=== PATIENT | male | born 1965 | race Caucasian/White ===

== ENCOUNTER 2023-08-14 07:18 | Observation (INO) ==
--- NOTE | 2023-07-17 08:53 | PAT Medication Instructions ---
Medication Instructions Date of Service July 17, 2023 Home Medications Medication Instructions Recorded aspirin 81 mg tablet,delayed 81 mg PO BID #60 tabs 01/12/21 release oxycodone-acetaminophen 5 mg-325 1 - 2 tab PO Q6H PRN pain #24 tabs 01/12/21 mg tablet (Percocet) amlodipine 10 mg tablet 5 mg PO QAM benazepril 40 mg tablet 40 mg PO QAM terazosin 5 mg capsule 5 mg PO DAILY aspirin 81 mg tablet,delayed release 81 mg PO BID oxycodone-acetaminophen 5 mg-325 mg tablet (Percocet) 1 - 2 tab PO Q6H PRN pain ASK your prescriber and surgeon aspirin 81 mg tablet,delayed release 81 mg PO BID DO NOT take the morning of surgery benazepril 40 mg tablet 40 mg PO QAM Take morning of surgery With a small sip of water, OTHERWISE NOTHING TO EAT OR DRINK AFTER MIDNIGHT: amlodipine 10 mg tablet 5 mg PO QAM terazosin 5 mg capsule 5 mg PO DAILY oxycodone-acetaminophen 5 mg-325 mg tablet (Percocet) 1 - 2 tab PO Q6H PRN pain (if needed) Take evening before surgery oxycodone-acetaminophen 5 mg-325 mg tablet (Percocet) 1 - 2 tab PO Q6H PRN pain (if needed) Other Notes If you have any questions please call us at [phone] or [phone] or [phone] or [phone]
--- NOTE | 2023-07-19 14:48 | Anesthesiology Consultation ---
Date of Service July 19, 2023 Assessment & Plan (1) Encounter for pre-operative examination: - Infectious disease screening: Per assessment on 07/19/23: No known infectious disease contacts or current infectious disease symptoms. No noted Covid positive test result in past 90 days. - Anesthesia reaction: Severe headache after lithotripsy (pt states done remotely years ago with [facility]) Chart Review Chart Review: Acceptable Risk for Surgery and Patient seen in Pre Admission Testing Teaching & Discussion Pre-Anesthesia Teaching/Discussion Notes: Instructed NPO after midnight before surgery,except medications with 15 cc of water. Medication instructions provided according to the PAT guidelines. History Surgery Operation Date: 08/14/23 07:00 Proposed Procedures p Bilateral Total Knee Arthroplasty - Ming Garces MD Height/Weight Height: 5 ft 7 in Weight: 72.4 kg Allergies Allergy/AdvReac Type Severity Reaction Status Date / Time bee venom protein (honey bee) Allergy Intermediate edema Verified 07/17/23 07:42 No Known Drug Allergies Allergy Verified 07/17/23 07:42 Medications Home Medications Medication Instructions Recorded Confirmed Last Taken amlodipine 10 mg tablet 5 mg PO QAM 05/05/20 07/17/23 01/11/21 06:00 benazepril 40 mg tablet 40 mg PO QAM 05/05/20 07/17/23 01/12/21 06:00 Past Medical History Medical History Degenerative arthritis of knee, bilateral Kidney stone No current issues Hypertension DVT (deep venous thrombosis) Left calf (approximately 2012), post-op left knee bursectomy Exercise / Class Metabolic Activity II 4-5 Yardwork/Stairs/Walk up hill (one FS (no CP, no SOB)) Past Family History Family History Other Coronary heart disease No family history of adverse response to anesthesia Past Surgical History Surgical History Hx of vasectomy Hx of right knee surgery Right Knee Arthroscopy, Partial Medial Menisectomy, Chondroplasty; microfracture right medial femoral condyle and medial tibial plateau [place] teeth extracted History of colonoscopy History of lithotripsy History of surgery spermatocelectomy H/O umbilical hernia repair H/O left knee surgery bursa removal Past Anesthesia History No Family Hx of Anesthesia Complications and Other (Severe headache after lithotripsy (pt states done remotely years ago with [facility])) History of PONV No Hx of PONV and No Hx of Motion Sickness Social History Smoking Status: Never smoker tobacco type: smokeless tobacco Do You Dip or Chew Tobacco: Yes (Daily- Advised none DOS) Hx Alcohol Use: Yes Alcohol type: beer alcohol intake frequency: 0-2 drinks per day Hx Substance Use: No substance use type: does not use Review of Systems Patient denies chest pain, shortness of breath, dyspnea on exertion, fever, chills, cough, wheezing, palpitations. Physical Exam Vital Signs VITALS BP 118/77 P 71 TEMP 97.9 SP02 95%RA RESP 16 PHYSICAL Full cervical extension range of motion. Full TMJ range of motion. TMD 3 finger breaths Mallampati Score 1 Dentition: intact, upper front left veneer Lungs: clear throughout to auscultation Cardiac: regular rate and rhythm, no murmurs noted Spine: normal Carotid arteries: negative bruit Extremities: no LE edema Lab Results Anesthesia Preop Results Results Anesthesia Widget: WBC 6.03 K/ul (4.8-10.8) 07/19/23 Hgb 15.0 g/dl (14.0-18.0) 07/19/23 Hct 42.1 % (42.0-52.0) 07/19/23 Plt 175 K/uL (130-400) 07/19/23 Na 141 mmol/L (136-145) 07/19/23 K 3.7 mmol/L (3.5-5.1) 07/19/23 Cl 108 mmol/L (98-107) H 07/19/23 CO2 27 mmol/L (21-32) 07/19/23 BUN 17 mg/dl (6-23) 07/19/23 Creat 0.83 mg/dl (0.6-1.4) 07/19/23 Glucose Level 82 mg/dl (70-99(Fasting)) 07/19/23 PT 10.5 Seconds (9.0-12.0) 07/19/23 PTT 26 Seconds (21-31) 07/19/23 INR 1.0 (0.9-1.1) 07/19/23 Blood Type A Negative 07/19/23 Antibody Screen NEGATIVE 07/19/23 Testing Electrocardiogram Date: 07/19/23 NSR at 70bpm. "Normal ECG" Chest X-Ray Date: 07/20/23 FINDINGS: Lung volumes are normal. Lungs are clear. There is no pneumothorax or pleural effusion. Cardiac size is normal. Mediastinal contours are normal. There is no evidence for pulmonary edema. IMPRESSION: No acute cardiopulmonary findings.
[~2023-08-14 07:18] MED LIST: ACETAMINOPHEN 500 MG TAB PO SCH; BUPIVACAINE 0.25% PF 30 ML VIAL ONE; BUPIVACAINE 0.5 % 5 MG/1 ML PF 10ML VIAL ONE; BUPIVACAINE LIPOSOME/PF 266 MG, BUPIVACAINE/EPINEPHRINE 50 ML, SODIUM CHLORIDE 0.9% PF ... INFIL SCH; CeleBREX 200 MG CAP PO SCH; FAMOTIDINE 20 MG TAB PO SCH; LR 500ML BOLUS, THEN 15ML/HR IV SCH; LR 60ML/HR IV SCH; METOCLOPRAMIDE HCL 10 MG TABLET PO SCH; Scopolamine 1 MG TDSY TD SCH; TRANEXAMIC ACID 1,000 MG **IV Intra-op IV SCH; ceFAZolin 2000MG 2,000 MG/15 ML SYR IV SCH; dexAMETHasone**PF** 10 MG/ML VIAL IV SCH
[2023-08-14] MEDS ORDERED: MIDAZOLAM HCL 1 MG/ML 2ML VIAL ONE (08:03)
[2023-08-14] MEDS ORDERED: fentaNYL citrate PF 100 MCG/2 ML VIAL ONE (08:03)
[2023-08-14] MEDS ORDERED: ONDANSETRON INJ 2 MG/ML 2 ML VIAL IV PRN ×2 (08:24→13:06)
[2023-08-14] MEDS ORDERED: fentaNYL citrate PF 100 MCG/2 ML VIAL IV PRN (08:24)
[2023-08-14] MEDS ORDERED: ePHEDrine sulfate 50 MG/ML AMP IV PRN (08:24)
[2023-08-14] MEDS ORDERED: ATROPINE SULFATE 0.1 MG/ML 10ML SYR IV PRN (08:24)
[2023-08-14] MEDS ORDERED: BUPIVACAINE/EPINEPHRINE 0.25% 1:200,000 30 ML VIAL ONE (08:45)
--- NOTE | 2023-08-14 08:45 | History & Physical Bridge Note ---
Date of Service August 14, 2023 History & Physical Bridge Note I have examined the patient, reviewed the History & Physical and in the interval since the performance of the History & Physical I have noted the following changes of clinical significance: no changes noted
[2023-08-14] MEDS ORDERED: BUPIVACAINE LIPOSOME 1.3% 266 MG/20 ML VIAL ONE (08:46)
[2023-08-14] MEDS ORDERED: SODIUM CHLORIDE 0.9% PF 50 ML VIAL ONE (08:46)
[2023-08-14] MEDS ORDERED: PROPOFOL IV EMULSION 10 MG/ML 20 ML VIAL IV ONE (10:56)
[2023-08-14] MEDS ORDERED: GLYCOPYRROLATE 0.2 MG/ML VIAL ONE (10:56)
[2023-08-14] MEDS ORDERED: DEXAMETHASONE SOD INJ 4 MG/ML VIAL ONE (10:56)
[2023-08-14] MEDS ORDERED: ONDANSETRON INJ 2 MG/ML 2 ML VIAL ONE (10:56)
--- NOTE | 2023-08-14 12:14 | Operative Report ---
PG Post Operative Report Pre & Post Diagnosis Operation Date: 08/14/23 08:50 Pre-Op Diagnosis: Bilateral Knee Degenerative Joint Disease Post-Op Diagnosis: Bilateral Knee Degenerative Joint Disease I identified the patient and participated in the time-out.: Yes Procedure Operation Date: 08/14/23 08:50 Actual Procedures p Bilateral Total Knee Arthroplasty, Cemented(Bilateral) - Ming Garces MD Surgeon Ming Garces MD Complaints Coordinator Dez Arana PA-C Estimated Blood Loss 100 Findings Consistent with Post-Op Diagnosis Operative findings were advanced bilateral knee DJD. Findings the left knee reveals mostly medial compartment disease with complete loss of cartilage space. Extensive body grade 4 changes of the trochlea as well as the lateral femoral condyle. Right knee had more extensive grade 4 [id number] disease of the medial compartment. He also had more extensive X body changes of the trochlea, patella, and lateral femoral condyle with a grade 4 disease. Specimens None Anesthesia Type Spinal MAC Complications none Disposition Accompanied Patient To Recovery: No Indications Patient is a 58-year-old active gentleman who had ASL year history of increasing bilateral knee pain discomfort describes gotten worse over time. Did have a right knee scope, partial meniscectomy and microfracture of medial femoral condyle done 2 and half years ago in the right knee. He did okay for the first year or so but Progressive pain discomfort deformity in both knees. He failed conservative measures. X-rays showed advanced medial compartment arthritis of both knees. He elected proceed with surgical treatment/knee replacement. Description of Procedure Left-sided knee implants consisted of: 1. Biomet Vanguard size 70 left posterior stabilized femoral component. 2. Biomet 75 tibial tray. 3. 12 mm pro stabilized polyethylene insert. 4. 31 x 8 all poly patella. Right side implants consist of: 1 Biomet Vanguard size 67.5 right posterior stabilized femoral component. 2. Biomet size 75 tibial tray. 3. 14 mm pro stabilized polyethylene insert. 4. 31 x 8 all poly patella. The patient was taken the operating, identified, placed on the operating table in the supine position but all contractors were properly padded. IV antibiotics tried by anesthesia team. A spinal anesthetic and been implemented holding area. The bilateral thigh tourniquets were then placed. The both legs were then prepped and draped in usual sterile fashion. Attention was drawn to the left leg. Left leg was elevated exsanguinated with use of an Esmarch and tourniquet placed at 300 mmHg. An anterior approach left knee was then formed to longitudinal incision centered over the patella. Sharp dissection was carried through subcutaneous tissue down the extensor mechanism. A medial parapatellar arthrotomy incision was made. Of note to the patient had a fairly well-defined bursa which we tried to the scuffed up a bit to a limited fluid accumulation but did not feel like it excised this as it was a very thin soft tissue envelope and was concerned about the vascularity and healing. A medial prepped arthrotomy incision was made. Some subperiosteal dissection Medially for the fat pad resected from Neath patella tendon. Patellofemoral ligament was released. Patella subluxated laterally and the knee was flexed with the osteophytes taken on distal femur. ACL PCL were then released from distal femur the tibia subluxated anteriorly. The external tibial alignment jig was then placed in the interface the tibia and adjusted 14 mm medially. Proximal tibial cut was made removed by millimeter or 2 of bone from the most deficient aspect medial tibial plateau. Some osteophytes taken off medially. The tibia sized to a size 75. Attention drawn the femur. The distal femur was entered with a sharp drill. The intramedullary canal was suction. A left 6 degree valgus cutting guide was placed. Distal femoral cutting block was pinned in place. Distal femoral cut was made to take an additional 3 mm of bone off distal femur. The femur was then sized to a size 70. The AP cutting block was pinned parallel to the epicondylar axis which was 4 degrees of external rotation. The anterior cut, anterior chamfer, posterior cut, posterior chamfer cuts were made. The box cutting guide was placed in just slight lateral box cut was made. The knee was flexed with the remnants of the medial lateral menisci were excised. The osteophytes taken off the posterior aspect the femur. Trial femoral component was placed and the tibial tray was p inned Melissa external rotation and the drill and stem punch used to create defect in proximal tibia for the tibial component. The knee was then trialed and the 12 mm insert fit most appropriately. Attention drawn the patella. The patella was cleaned of all soft tissues. Patella thickness measured 24 mm in thickness was cut down to 15. It was sized to a size 31 patella. The lug holes were drilled for 31 patella. Lateral x-rays removed. Patella button was placed. Knee was taken through range of motion patella tracked nicely with no thumbs test. Attention drawn to placing the permanent components. Follow troponin was removed. Bone plug was placed in the distal femur limit blood loss. Batch Palacos G cement was mixed. Biomet Vanguard size 70 left posterior by femoral component, size 75 tibial tray, a 12 mm pro stabilized polyethylene insert, and a 31 x 8 all poly patella were then cemented in place. Knee was brought out in full extension till cement hardened. Final cement check was then performed. Pericapsular tissues were injected with 50 cc of combination of 20 cc of Exparel, 15 cc of normal saline and 25 cc of quarter percent Marcaine with epinephrine. The tourniquet was then let down for tourniquet 55 minutes. Hemostasis assured with electrocautery. The wound was once again irrigated. The extensor Meclomen closed with combination of #1 PDS suture #1 Vicryl suture in a [id number] fashion. Extensor Maxon checked found to be intact and subcutaneous tissue then closed with 2 Dexon suture in a buried erupted fashion and the skin was closed skin rajni. Leg was then cleaned and dried and sterile dressed with Xeroform, 4 fours sterile cast padding and Fabrizio bandage were applied. During our closing of the subcutaneous tissues and the skin of the left knee surgery a similar procedure was begun on the right leg. The right leg was elevated exsanguinated with use of an Esmarch and a turn was placed at 3 mmHg. An anterior process of the right knee was then performed to longitudinal incision centered over the patella. Sharp dissection was carried through subcutaneous tissue down the extensor mechanism. A medial prepped arthrotomy incision was made. Some subperiosteal dissection was carried out medially. Fat pad resected from Neath patella tendon. Lateral patellofemoral ligament was released. Patella subluxated laterally knee was flexed with the osteophytes taken off distal femur. The ACL PCL were then released from distal femur the tibia subluxated anteriorly. The external treatment line jig was then placed the interface the tibia and adjusted 14 mm medially. Proximal tibial cut was made remove about a millimeter or 2 of bone from the medial side. Still some osteophytes taken off medially and posterior medially. Tibia sized to size 75. Attention drawn the femur. The distal femur with a sharp drop with intramedullary canal was suction. Right 6 degree valgus cutting guide was placed. This femoral cutting block was pinned in place. This femoral cut was made to take an additional 3 mm of bone off distal femur. The femur was then sized and sized to a size 67.5. The AP cutting block was pinned parallel to the epicondylar axis which was 4 degrees of external rotation. Anterior cut, anterior chamfer, posterior cut, posterior chamfer cuts were made. The box cutting guide was placed in just slight lateral box cut was made. The knee was flexed. The remnants of the medial and lateral menisci were excised. The osteophytes taken off the posterior aspect the femur. Trial femoral component was placed for the tibial tray was pinned Melissa external rotation and the drill and stem punch used to create defect in proximal tibia for the tibial tray. The knee was then trialed and the 14 mm insert fit most appropriately. Attention drawn the patella. The patella is cleaned of all soft tissues. Patella thickness measured 24 mm in thickness was cut down to 14. Was sized to a size 31 patella. The locals were drilled for 31 patella. Lateral osteophytes removed. Patella button was placed. Knee was taken through range of motion and the patella tracked nicely with no thumbs test. Attention drawn to place the permanent components. Nupathe all trial components were removed. Bone plug was placed in the distal femur limit blood loss. Double batch Palacos G cement was mixed. Biomet Vanguard size 67.5 right Po stabilized femoral component, size 75 tibial tray, 14 mm pro stabilized polyethylene insert, and a 31 x 8 all Paller patella then cemented in place. The knee was brought out into full extension till cement hardened. Final cement check was then performed. Pericapsular tissues were injected with total 100 cc of combination of choice of Exparel, 30 cc normal saline, 50 cc of quarter percent Marcaine with epinephrine. Patient did receive 1 g tranexamic acid. The tourniquet was then let down for final tourniquet 57 minutes. Hemostasis surgery electrocautery. Extensor Meclomen closed with combination 1 PDS suture #1 Vicryl suture in [id number] fashion. Extensor Maxon checked found to be intact the subcutaneous tissue then closed with 2 Dexon suture in a buried fashion skin was closed skin rajni. Leg was then cleaned and dried and sterile dressing composed of Xeroform, 4 fours, sterile cast padding, Fabrizio bandage were applied. Patient then transferred to the recovery room in stable condition. Patient tolerated procedure well and there were no complications. Dez Arana, my physician geriatric assistant, was present for the entire procedure. His assistance was essential and required for appropriate patient positioning, prepping and draping, surgical exposure, performing the technical details of the operation, placement the implants, closure of the wound, and placement of the sterile bandage. I attest to the content of the Intraoperative Record and any orders documented therein. Any exceptions are noted below.
--- NOTE | 2023-08-14 12:40 | XRay Report ---
TWO VIEWS LEFT KNEE CLINICAL HISTORY: Postoperative examination. FINDINGS: AP and crosstable lateral portable views of the left knee are obtained. A left knee arthrop lasty is in near anatomic alignment. There has been undersurface remodeling of the patella. No acute fracture is seen. There are expected postoperative changes around the knee including skin clips, soft tissue edema, and subcutaneous gas. IMPRESSION: Expected postoperative changes status post left knee arthroplasty. No acute fracture is s een. ACT 112: Negative or not required by law. Electronically signed by: Tj Mcleod M.D. 08/14/2023 12:39 PM
--- NOTE | 2023-08-14 12:55 | XRay Report ---
XR knee RT 1 or 2V routine HISTORY: 58 years-old Male Surgical Post Op right knee arthroplasty COMPARISON: 07/19/2023 TECHNIQUE: 2 views of the right knee FINDINGS: Total arthroplasty with patellar surfacing. Anterior midline skin rajni are noted along with expect ed postoperative soft tissue swelling and deep tissue air. No acute fracture, dislocation or unexpect ed opaque foreign body. IMPRESSION: Total joint arthroplasty with expected postoperative changes. ACT 112: Negative or not required by law. The above report was generated using voice recognition software. It may contain grammatical, syntax o r spelling errors. Electronically signed by: Clive Castle M.D. 08/14/2023 12:54 PM
[2023-08-14] MEDS ORDERED: NALOXONE HCL 0.4 MG/1 ML VIAL/CARP IV PRN (13:06)
[2023-08-14] MEDS ORDERED: diphenhydrAMINE Capsule 25 MG CAP PO PRN (13:06)
[2023-08-14] MEDS ORDERED: TAMSULOSIN HCL 0.4 MG CAP PO PRN (13:06)
[2023-08-14] MEDS ORDERED: METOCLOPRAMIDE HCL INJ 5 MG/ML 2 ML VIAL IV PRN (13:06)
[2023-08-14] MEDS ORDERED: bisacodyL 10 MG SUPP PR PRN (13:06)
[2023-08-14] MEDS ORDERED: MAGNESIUM HYDROXIDE SUSP 30 ML UDC PO PRN (13:06)
[2023-08-14] MEDS ORDERED: HYDROmorphone INJ 0.5 MG/0.5 ML SYR IV PRN (13:06)
[2023-08-14] MEDS ORDERED: NO NSAIDS SCH (13:06)
[2023-08-14] MEDS: SODIUM CHLORIDE 0.9% 1,000 ML IV SCH ×2 (13:26→23:45)
[2023-08-14] MEDS: ACETAMINOPHEN 500 MG TAB PO SCH ×2 (14:20→20:39)
--- NOTE | 2023-08-14 16:30 | Anesthesiology Progress Note ---
Date of Service August 14, 2023 Anesthesia Post Procedure Vital Signs Vital Signs: Temp Pulse Pulse Pulse Resp BP Pulse Ox 08/14/23 15:51 36.6 C 69 16 117/57 L 96 08/14/23 14:55 36.5 C 52 L 16 113/67 97 08/14/23 14:00 36.6 C 63 16 122/73 98 08/14/23 13:20 61 16 105/66 97 08/14/23 12:50 36.5 C 63 16 152/86 H 96 08/14/23 12:35 36.3 C L 53 L 12 108/64 98 08/14/23 12:25 64 15 111/68 97 08/14/23 12:15 60 15 117/68 96 08/14/23 12:06 36.3 C L 72 12 117/69 95 08/14/23 07:43 36.8 C 62 20 152/92 H 95 O2 Del Method O2 Flow Rate 08/14/23 15:51 Room Air 08/14/23 14:55 Room Air 08/14/23 14:00 Room Air 08/14/23 13:20 Room Air 08/14/23 12:50 Room Air 08/14/23 12:35 Nasal Cannula 3 08/14/23 12:25 Nasal Cannula 3 08/14/23 12:15 Nasal Cannula 3 08/14/23 12:06 Nasal Cannula 3 08/14/23 07:43 Room Air Transfer of Care Handoff Completed per policy Notes Mental Status: alert / awake / arousable and participated in evaluation Patient Amnestic to Procedure: Yes Nausea / Vomiting: adequately controlled Pain: adequately controlled Airway Patency, RR, SpO2: stable & adequate BP & HR: stable & adequate Hydration State: stable & adequate Neuraxial Anesthesia: was administered and sensory block is resolving Anesthetic Complications: no major complications apparent and Pt Satisfied with anesthetic care
[2023-08-14] MEDS: ASCORBIC ACID 500 MG TAB PO SCH (16:44)
[2023-08-14] MEDS: Scopolamine CHECK PATCH PLACEMENT SCH (16:45)
[2023-08-14] MEDS: KETOROLAC 30 MG/ML VIAL IV SCH ×2 (18:03→23:45)
[2023-08-14] MEDS ORDERED: TRANEXAMIC ACID / 0.7% NACL 1,000 MG/100 ML BAG IV SCH (18:15)
[2023-08-14] MEDS: ceFAZolin 1000MG 1,000 MG/7.5 ML SYR IV SCH (18:31)
[2023-08-14] MEDS: DOCUSATE SODIUM 100 MG CAP PO SCH (20:39)
[2023-08-14] MEDS ORDERED: SENNA 8.6 MG TAB PO SCH ×2 (21:00)
[2023-08-15] MEDS: Scopolamine CHECK PATCH PLACEMENT SCH ×2 (00:20→08:29)
[2023-08-15] MEDS: oxyCODONE HCL IR 5 MG TAB (IMMEDIATE RELEASE) PO PRN ×2 (00:27→08:14)
[2023-08-15] MEDS: ceFAZolin 1000MG 1,000 MG/7.5 ML SYR IV SCH (01:45)
[2023-08-15] MEDS: KETOROLAC 30 MG/ML VIAL IV SCH (05:43)
[2023-08-15 07:43] LABS: Hematocrit (blood only) 30.1 % (42.0-52.0); Hemoglobin 10.6 g/dl (14.0-18.0); Mean Corpuscular Hemoglobin 32.2 pg (25.0-34.0); Mean Corpuscular Hgb Conc 35.2 g/dL (32.0-36.0); Mean Corpuscular Volume 91.5 fL (80.0-100.0); Mean Platelet Volume 10.9 fL (9.4-12.4); Platelet Count 148 K/uL (130-400); RDW Coefficient of Variation 12.8 % (11.5-14.5); RDW Standard Deviation 42.7 fL (36.4-46.3); Red Blood Count 3.29 M/uL (4.70-6.10)
[2023-08-15] MEDS ORDERED: dexAMETHasone 10 MG in SYRINGE 0 ML IV SCH (08:00)
[2023-08-15 08:09] LABS: BUN Creatinine Ratio 19.8 (10-20); Calcium 7.9 mg/dl (8.6-10.3); Creatinine Clr Calc Pharmacy 80.3 ml/min; Potassium 4.1 mmol/L (3.5-5.1)
[2023-08-15] MEDS: ASCORBIC ACID 500 MG TAB PO SCH (08:21)
[2023-08-15] MEDS: DOCUSATE SODIUM 100 MG CAP PO SCH (08:21)
[2023-08-15] MEDS: ACETAMINOPHEN 500 MG TAB PO SCH (08:22)
[2023-08-15] MEDS ORDERED: ENALAPRIL MALEATE 10 MG TAB PO SCH (09:00)
[2023-08-15] MEDS ORDERED: amLODIPine BESYLATE 5 MG TAB PO SCH (09:00)
[2023-08-15] MEDS ORDERED: MULTIVITAMIN TAB PO SCH (09:00)
--- NOTE | 2023-08-15 09:09 | Orthopedic Progress Note ---
Date of Service August 15, 2023 Assessment & Plan (1) Status post total bilateral knee replacement: Overall, he is doing quite well today with good pain control to his bilateral knees. He will work with physical therapy later on today to work on ambulation and range of motion exercises. He is currently on Xarelto for DVT prophylaxis. He can be discharged home later today pending physical therapy evaluation. He will follow-up with Dr. Garces in 2 weeks for postoperative care. Subjective . Jaxson was seen and evaluated at bedside this morning resting comfortably in no apparent distress. He notes that his pain is well-controlled to his bilateral knees. He notes that he has sat at bedside with his legs dangling but has not been up out of bed since surgery. He has yet to work with physical therapy today. He denies any other concerns today. Review of Systems All systems reviewed & are unremarkable except as noted in HPI & below. Physical Exam . On physical examination of his bilateral knees, dressings are in place, clean, dry, and intact. His legs are out in full extension. He has active plantarflexion dorsiflexion at bilateral ankles. +2 DP and PT pulses. Less than 2-second capillary refill. Normal sensation. Neurovascular intact. Results & Data Results & Data Laboratory Results . Diagnostic Findings . Postoperative x-rays of his bilateral knees show prosthesis to be in anatomical alignment with no signs of fracture complication or loosening. PG Care Time/CCT Total # of Minutes Spent Total Time Spent with Patient: Total time spent is greater than 50% in coordination of care (as documented) at patient's floor/unit and/or counseling patient: Coding Level of Care Code 79569 Post Operative Follow-Up Diagnoses Status post total bilateral knee replacement Z96.653
--- NOTE | 2023-08-15 09:11 | Discharge Summary ---
Date of Service August 15, 2023 Principal Diagnosis Same as "Discharge Diagnosis" noted below under Discharge Instructions. Discharge Exam . On physical examination of his bilateral knees, dressings are in place, clean, dry, and intact. His legs are out in full extension. He has active plantarflexion dorsiflexion at bilateral ankles. +2 DP and PT pulses. Less than 2-second capillary refill. Normal sensation. Neurovascular intact. Discharge Data Procedures Performed Operation Date: 08/14/23 08:50 Actual Procedures p Bilateral Total Knee Arthroplasty, Cemented(Bilateral) - Ming Garces MD Ordered Studies 08/14/23 05:00 US - OR guided needle placemen Routine Hospital Course (1) Status post total bilateral knee replacement: On August 14, 2023 Jaxson arrived at [facility] and underwent a bilateral total knee arthroplasty without complication. He had a spinal anesthetic. Postoperatively, he was started on Xarelto for DVT prophylaxis and transferred to the general orthopedic floor in stable condition. His hospital course was uneventful. On postoperative day #1, his vital signs were stable and his pain was well-controlled. He participated well with physical therapy doing ambulation and range of motion exercises. He was then discharged home in stable condition. He will follow-up with Dr. Garces in 2 weeks for postoperative care. PG Care Time/CCT Total # of Minutes Spent Total Time Spent with Patient: Total time spent is greater than 50% in coordination of care (as documented) at patient's floor/unit and/or counseling patient: Discharge Plan Discharge Items Patient Disposition: Home - Self-Care Reason For Visit: Bilateral Knee Degenerative Joint Disease Discharge Diagnosis: Bilateral knee replacements Activity: Per Instructions section Non-emergency contact: Surgeon Call non-emergency contact if: you have any medication questions Follow-up/Referrals: Fabby Marshall CRNP [Primary Care Provider] - Diet: Regular Addtl Attending Provider Instructions: ACTIVITY RECOMMENDATIONS: Physical Therapy: * You will go to physical therapy three times each week for four to six weeks after your surgery in order to regain your knee range of motion and to retrain your knee to work properly. * It is just as important to make sure you are getting your knee perfectly straight as it is to regain your knee bend. * Taking a pain pill an hour before therapy can help you have a more productive and comfortable therapy session. Home Exercise: * You were shown a series of exercises (heel props, heel slides, etc.) in the hospital. Do these exercises three to four times each day including the exercises you were shown in physical therapy. Walking: * Get up and walk several times each day. For the first four weeks, try not to stand or walk for more than one hour at a time. If you do stand or walk for more than one hour, you will not hurt anything, but your knee and leg will likely swell. * As you feel comfortable, you may change from the walker or crutches to a cane and then to independent walking. MEDICATIONS: New Medicine: * You will likely be taking one or more of these medications: 1. Oxycodone - A quick and shorter-acting pain medication. Take one to two tablets every six hours to lessen your pain. 2. Xeralto - Thins your blood to lessen the chance of forming a blood clot. * The most common side effects of pain medicine and iron are nausea and constipation. If nausea or constipation is too much of a problem or if you have any questions about your new medicines or doses, call [facility] at . We will try to help you manage these issues. "VERY IMPORTANT TO READ AND REVIEW" Pain: * The immediate post-operative period after knee replacement surgery is often quite painful. * You are given a prescription for pain medicine. You should take it, as directed, when you need it, especially before physical therapy and before going to bed. Pain that interferes with sleep is very common and can last several months. * You will likely need pain medicine for the first four to six weeks. It will not stop all of the pain. The pain will lessen and as you feel better, you may change to milder pain medicine such as Tylenol. * The most common side effects of pain medicine are nausea and constipation, so don't take more than you need. SPECIAL CARE INSTRUCTIONS: TEDs/Elastic Stockings: * The white elastic stockings help limit swelling and prevent blood clots from forming in your legs. The more you wear them, the more they work. * Wear them for six weeks after knee replacement surgery and four weeks after partial knee replacement. Incision Site Care: * Remove dressing postoperative day 2 and then shower. Keep direct shower pressure off the incision site. * After showering, cover rajni with dry gauze and change daily or more frequently if the dressing is getting saturated with drainage. * Use the ENEIDA stockings to hold dressing in place. DO NOT apply tape on the skin. * May completely stop using bandage if wound is dry and no drainage * [place] are removed between 2 and 3 weeks post-op. If your follow-up appointment is made before 2 weeks, please have your appointment re- scheduled. It is too early to remove the rajni. Prevention of Infection: * Take antibiotics one hour before any dental cleaning, dental work, urological procedure, gastrointestinal procedure or any invasive surgery in order to prevent your new joint from getting infected. * You may get the antibiotics from the doctor performing the procedure or you may call our office at [phone] before and we will call in a pres cription to the pharmacy of your choice. Things to Watch For: * Drainage from the incision site that occurs more than one week after your surgery. * Severely increased knee/leg pain or swelling. * Increased redness at the incision site. * Fever above 102 degrees Fahrenheit. * Unusual chest pain or shortness of breath. * Unusual pain or burning with urination. Call [facility] at [phone] with any of the above problems or if you have any questions about your medicines or recovery. FOLLOW UP VISIT: Make an appointment to see your doctor for approximately two weeks after surgery for a progress check and staple removal by calling the office at [phone]. Pending Studies at Discharge: No Stand-Alone Forms: [facility], Smoking Cessation Medications and DC Order Prescriptions: Continued sennosides [Senokot] 8.6 mg tablet 8.6 mg PO BID 14 Days Qty: 28 0RF Rx Instructions: Take two times a day to prevent/treat constipation acetaminophen [Tylenol Extra Strength] 500 mg tablet 1,000 mg PO TID 30 Days Qty: 180 0RF Rx Instructions: Take 3 times per day to lessen pain. ondansetron 4 mg tablet,disintegrating 4 mg PO Q8 PRN (Reason: nausea) Qty: 20 1RF Rx Instructions: Take as needed for nausea oxycodone 5 mg tablet 5 - 10 mg PO Q6 PRN (Reason: pain) Qty: 40 0RF Rx Instructions: Take as needed for pain cefadroxil 500 mg capsule 500 mg PO BID 7 Days Qty: 14 0RF Rx Instructions: Take 1 cap twice a day to prevent infection Xarelto 10 mg tablet 10 mg PO DAILY 30 Days Qty: 30 0RF Rx Instructions: Take 1 tablet daily for 30 days to prevent blood clots amlodipine 10 mg tablet 5 mg PO QAM benazepril 40 mg tablet 40 mg PO QAM Discharge Orders: Discharge Order (Routine); Ordered 08/15/23 Ordered By: Clive Walker Admission Data Admit Date/Time: 08/14/23 12:09 Attending Provider: Ming Garces Admit Provider: Ming Garces Primary Care Provider: Fabby Marshall
[2023-08-15] MEDS ORDERED: RIVAROXABAN 10 MG TABLET PO SCH (13:00)
== END 2023-08-15 10:56 | disposition home or self-care (01) ==
LOC: ASU 07:18 → 3E 07:18